=== PATIENT | female | born 1995 | race American Indian/Alaskan Native ===

== ENCOUNTER 2018-07-16 22:48 | Emergency (ER) | payer MEDICAID ==
[2018-07-16] MEDS ORDERED: TYLENOL ONE (23:58)
[2018-07-17] MEDS ORDERED: TYLENOL PO ONE
[2018-07-17] MEDS ORDERED: TRIMOX PO ONE (03:06)
[2018-07-17] MEDS ORDERED: TYLENOL #3 PO ONE (03:06)
--- NOTE | 2018-07-17 03:12 | Emergency Department Report ---
ED ENT HPI - General Chief complaint: Dental/Oral Stated complaint: ABCESS TOOTH 6MNTS PREG Time Seen by Provider: 07/17/18 03:06 Source: patient Mode of arrival: Ambulatory Limitations: No Limitations - History of Present Illness Initial comments: 22 year old -[place] female presents to the emergency room for 3-4 days of tooth pain while being 6 months . Patient has not taken anything for pain as she was not aware of what she could take for pain. Patient reports no known drug allergies currently takes only vitamins has really no past medical history. Patient reports that she made an appointment with the dentist that they had called to cancel. Patient is here to be evaluated. MD complaint: tooth pain -: days(s) (4) Location: tooth # (1) Severity: severe Severity scale (0 -10): 10 Quality: stabbing, aching, sharp, constant Consistency: constant Improves with: none Worsens with: none Associated Symptoms: gum swelling, toothache. denies: fever, cough - Related Data Previous Rx's Medication Instructions Recorded Last Taken Type Acetaminophen/Codeine [Tylenol 1 tab PO Q6H PRN #12 tab 07/17/18 Unknown Rx /Codeine # 3 tab] Amoxicillin 500 mg PO Q8H #30 capsule 07/17/18 Unknown Rx Allergies Allergy/AdvReac Type Severity Reaction Status Date / Time No Known Allergies Allergy Unverified 07/16/18 23:57 ED Dental HPI - General Chief complaint: Dental/Oral Stated complaint: ABCESS TOOTH 6MNTS PREG Time Seen by Provider: 07/17/18 03:06 Source: patient Mode of arrival: Ambulatory Limitations: No Limitations - Related Data Previous Rx's Medication Instructions Recorded Last Taken Type Acetaminophen/Codeine [Tylenol 1 tab PO Q6H PRN #12 tab 07/17/18 Unknown Rx /Codeine # 3 tab] Amoxicillin 500 mg PO Q8H #30 capsule 07/17/18 Unknown Rx Allergies Allergy/AdvReac Type Severity Reaction Status Date / Time No Known Allergies Allergy Unverified 07/16/18 23:57 ED Review of Systems ROS: Stated complaint: ABCESS TOOTH 6MNTS PREG Other details as noted in HPI Comment: All other systems reviewed and negative ENT: dental pain ED Past Medical Hx - Past Medical History Previous Medical History?: Yes Hx Asthma: Yes - Surgical History Past Surgical History?: No - Social History Smoking Status: Former Smoker Substance Use Type: None - Medications Home Medications: Home Medications Medication Instructions Recorded Confirmed Last Taken Type Acetaminophen/Codeine [Tylenol 1 tab PO Q6H PRN #12 tab 07/17/18 Unknown Rx /Codeine # 3 tab] Amoxicillin 500 mg PO Q8H #30 capsule 07/17/18 Unknown Rx ED Physical Exam - General Limitations: No Limitations General appearance: alert, in no apparent distress - Head Head exam: Present: atraumatic, normocephalic - Eye Eye exam: Present: EOMI - Expanded ENT Exam Expanded Teeth exam: Present: dental tenderness # (1), gingival enlargement ED Course Vital Signs 07/16/18 23:52 Temperature 98.2 F Pulse Rate 103 H Respiratory 18 Rate Blood Pressure 133/92 O2 Sat by Pulse 100 Oximetry ED Medical Decision Making - Medical Decision Making Patient has been evaluated by this provider in fast track. Tylenol No. 3 2 tabs given now for pain management and amoxicillin 500 mg to start her antibiotics. Patient be discharged home on amoxicillin and Tylenol 3 patient is to follow-up with the dentist. Critical care attestation.: If time is entered above; I have spent that time in minutes in the direct care of this critically ill patient, excluding procedure time. ED Disposition Clinical Impression: Tooth abscess Disposition: - TO HOME OR SELFCARE Is pt being admited?: No Does the pt Need Aspirin: No Condition: Stable Instructions: Dental Abscess (ED) Additional Instructions: Please complete antibiotics as prescribed. Take Tylenol No. 3 as needed for pain. Please do not operate heavy machinery while taking Tylenol No. 3. It is very important for you to follow-up with the dentist I have listed several below for your convenience. Prescriptions: Acetaminophen/Codeine [Tylenol /Codeine # 3 tab] 1 tab PO Q6H PRN #12 tab PRN Reason: Pain , Severe (7-10) Amoxicillin 500 mg PO Q8H #30 capsule Referrals: PRIMARY CARE, [Primary Care Provider] - 3-5 Days [facility] [Outside] - 3-5 Days [facility] [Outside] - 3-5 Days [facility] [Outside] - 3-5 Days [facility] [Provider Group] - 3-5 Days Forms: Accompanied Note, Work/School Release Form(ED)
[2018-07-17 03:56] VITALS: BP 114/69
== END 2018-07-17 03:56 | disposition home or self-care (01) ==
LOC: ED 22:48
DX: O99.612 Diseases of the digestive system complicating pregnancy, second trimester (principal); K04.7 Periapical abscess without sinus; O99.512 Diseases of the respiratory system complicating pregnancy, second trimester; J45.909 Unspecified asthma, uncomplicated; Z87.891 Personal history of nicotine dependence; Z3A.24 24 weeks gestation of pregnancy
CPT/HCPCS: 99282